=== PATIENT | female | born 1960 | race Caucasian/White ===

== ENCOUNTER 2022-10-25 11:38 | Day surgery (SDC) | payer OTHER, SELFPAY ==
[2022-10-20 14:30] VITALS: BMI 26.3
--- NOTE | 2022-10-24 14:17 | P.CONAN_ITS ---
Documented by User: Olga Landry NP 10/24/22 14:18 HPI - Anesthesia Eval Consult details Narrative: 61yo F for Bilateral Medial Rectus Eye Muscle Recession Medically optimized [facility] Past Medical History Medical History Seasonal allergies Asthma Genital herpes Osteoporosis Depression HTN (hypertension) Elevated cholesterol Arthritis Surgical History Surgical History (Updated 10/20/22 @ 14:16 by Cherry Hernandez RN) Hx of dilation and curettage Hx of wisdom tooth extraction Social History Social History Are you a primary rn palliative care to a significant other at home: No Do you presently have visiting nurse or other home services: No Patient Tobacco Use Status: Never used Tobacco Use of substances other than those prescribed or required for medical reasons: No Have you been hit, kicked, punched, or otherwise hurt by someone within the past year? If so, by whom?: No Are you DNR?: No Advance Directives: No Advance Directives Information Provided: Yes (brochure mailed) Advance Directives on File: No Recently lost weight without trying: No Eating poorly because of decreased appetite: No Nutrition Risks: No Nutritional Risk Meds Allergies Allergy/AdvReac Type Severity Reaction Status Date / Time acai Allergy Severe Anaphylaxis Verified 10/25/22 12:07 Sulfa (Sulfonamide Allergy Intermediate Rash Verified 10/25/22 12:07 Antibiotics) Home Medications Medication Instructions Recorded Confirmed Last Taken Type No Known Home Meds 10/25/22 10/25/22 Unknown History Exam Exam Date and Time: October 24, 2022 1417 Height,Weight and Vital Signs: Height 5 ft 2 in Weight 65.317 kg Assessment and Plan Assessment Anesthesia Assessment: Chart Reviewed Documented by User: Darleen Xiao MD 10/25/22 13:55 [facility] Past Medical History Medical History Seasonal allergies Asthma Genital herpes Osteoporosis Depression HTN (hypertension) Elevated cholesterol Arthritis Family History Family history of problems with anesthesia: No Surgical History Surgical History (Updated 10/20/22 @ 14:16 by Cherry Hernandez RN) Hx of dilation and curettage Hx of wisdom tooth extraction History of Problems with Anesthesia: No Social History Social History Are you a primary rn palliative care to a significant other at home: No Do you presently have visiting nurse or other home services: No Patient Tobacco Use Status: Never used Tobacco Use of substances other than those prescribed or required for medical reasons: No Have you been hit, kicked, punched, or otherwise hurt by someone within the past year? If so, by whom?: No Are you DNR?: No Advance Directives: No Advance Directives Information Provided: Yes (brochure mailed) Advance Directives on File: No Recently lost weight without trying: No Eating poorly because of decreased appetite: No Nutrition Risks: No Nutritional Risk Meds Allergies Allergy/AdvReac Type Severity Reaction Status Date / Time acai Allergy Severe Anaphylaxis Verified 10/25/22 12:07 Sulfa (Sulfonamide Allergy Intermediate Rash Verified 10/25/22 12:07 Antibiotics) Home Medications Medication Instructions Recorded Confirmed Last Taken Type No Known Home Meds 10/25/22 10/25/22 Unknown History Exam Airway Mallampati Class: II TM Dist: <=3cm Neck ROM: Full Heart: rrr Lungs: cta Assessment and Plan Assessment Anesthesia Assessment: Anesthesia Plan Discussed Final Anesthetic Review Family History of Problems with Anesthesia: No History of Problems with Anesthesia: No NPO: Yes ASA Class: II Final Preanesthetic Review: No Changes in Pt Med Stat, Meds/Allgs Chart Reviewed, Consent Obtained/Reviewed and Anes Risks/Benef Reviewed Patient Risk: Low Procedure Risk: Low Anesthetic Plan Anesthetic Plan: GA Disposition: Standard PACU
[2022-10-25] VITALS (8 sets, daily range): BP systolic 123–136; BP diastolic 50–68; PULSE 74–89; RESP 12–16; TEMP 36.6–36.8; O2SAT 97–100
[2022-10-25] MEDS: Lactated Ringers 1,000 ML 100 ML IVCONT (12:18)
--- NOTE | 2022-10-25 14:08 | PC.NURSE ---
Bilateral hearing aides into OR per Dr. Ly. Lilliana De Paz OR nurse made aware.
--- NOTE | 2022-10-25 15:02 | P.OPHTHAL_ITS ---
Ophthalmology Operative Note Date of Service: 10/25/22 Narrative: Diagnosis esotropia. Procedure bilateral medial rectus recessions of 3.[address] [place]. Anesthesia general. Complications none. The patient was brought to the operative room placed under general anesthesia. The eyes were prepped and draped in the usual sterile ophthalmic fashion. A lid speculum was placed in the right eye and incisions made at bare sclera in the inferonasal fornix. The medial rectus muscle was hooked and secured with a double-armed Vicryl suture. The muscle was disinserted the globe and reattached to a position 3.5 mm behind the original insertion using a hang back technique. Co njunctiva was closed with interrupted Vicryl sutures. An identical procedure was then performed on the left eye. The patient was then awoken from general anesthesia and discharged to postoperative recovery in good condition.
== END 2022-10-25 16:20 | disposition home or self-care (01) ==
LOC: HO.SSS 11:38
PROVIDERS: PCP Internal Medicine; Visit Provider Ophthalmology
PROC: (CPT 67311; principal; 2022-10-25 14:10)
DX: H50.32 Intermittent alternating esotropia (principal); I10 Essential (primary) hypertension; E78.00 Pure hypercholesterolemia, unspecified; E03.9 Hypothyroidism, unspecified; M19.90 Unspecified osteoarthritis, unspecified site; M81.0 Age-related osteoporosis without current pathological fracture; F32.A Depression, unspecified; Z88.2 Allergy status to sulfonamides
CPT/HCPCS: 67311; J1100; J1885; J2405; J3010